=== PATIENT | female | born 1995 | race Caucasian/White ===

== ENCOUNTER 2017-03-08 22:25 | Emergency (ER) | payer OTHER ==
[~2017-03-08] VITALS: Ht 165.1 cm; Wt 79.5 kg
[~2017-03-08 22:25] MED LIST: BIRTH CONTROL PO; FLOVENT 110MCG7.9 GM IH; LORTAB 5/500 501 TAB PO; ZITHROMAX Z PA250 MG PO
[2017-03-08 22:29] VITALS: BP 113/68; PULSE 85; TEMP 97.9
== END 2017-03-08 23:26 | disposition left against medical advice (07) ==
LOC: COL.ER 22:25
DX: J18.9 Pneumonia, unspecified organism (principal)

== ENCOUNTER 2017-03-30 03:33 | Emergency (ER) | payer OTHER ==
[~2017-03-30] VITALS: Ht 165.1 cm; Wt 77.3 kg
[2017-03-30 03:37] VITALS: TEMP 98.2
[2017-03-30] MEDS ORDERED: DOXYCYCLINE 10100 MG PO (06:29)
[2017-03-30] MEDS ORDERED: PREDNISONE20 MG PO (06:29)
[2017-03-30 06:41] VITALS: BP 122/73; PULSE 98
== END 2017-03-30 06:42 | disposition home or self-care (01) ==
LOC: COL.ER 03:33
DX: J45.901 Unspecified asthma with (acute) exacerbation (principal); J20.9 Acute bronchitis, unspecified; F17.210 Nicotine dependence, cigarettes, uncomplicated; Z32.02 Encounter for pregnancy test, result negative
CPT/HCPCS: J7512

== ENCOUNTER 2018-07-12 22:29 | Emergency (ER) | payer OTHER ==
[~2018-07-12] VITALS: Ht 162.6 cm; Wt 68.2 kg
[~2018-07-12 22:29] MED LIST changes: +DOXYCYCLINE 10100 MG PO; +PREDNISONE20 MG PO
[2018-07-12 22:35] VITALS: BP 122/69; TEMP 97.4
[2018-07-13 00:14] VITALS: PULSE 60
== END 2018-07-13 00:14 | disposition home or self-care (01) ==
LOC: COL.ER 22:29
DX: T22.112A Burn of first degree of left forearm, initial encounter (principal); Z23 Encounter for immunization; X10.2XXA Contact with fats and cooking oils, initial encounter; Y92.59 Other trade areas as the place of occurrence of the external cause

== ENCOUNTER 2020-03-25 22:30 | Emergency (ER) | payer SELFPAY ==
[~2020-03-25] VITALS: Ht 162.6 cm; Wt 61.4 kg
[2020-03-25 22:36] VITALS: BP 107/63; PULSE 92; TEMP 98
[2020-03-25 23:29] LABS: COLLECTION METHOD CLEAN CATCH
[2020-03-25 23:36] LABS: MUCOUS Present /lpf; PH 5 (5-8); URINE APPEARANCE Hazy; URINE BACTERIA None Seen /hpf; URINE BILIRUBIN Negative (NEGATIVE); URINE BLOOD Negative (NEGATIVE); URINE COLOR Yellow; URINE GLUCOSE Negative (NEGATIVE); URINE KETONE Negative (NEGATIVE); URINE LEUKOCYTE ESTERASE Negative (NEGATIVE); URINE NITRATE Negative (NEGATIVE); URINE PROTEIN(semi-quant) Negative (NEGATIVE); URINE RBC 0-2 /hpf; URINE UROBILINOGEN Negative (NEGATIVE)
== END 2020-03-26 00:17 | disposition home or self-care (01) ==
LOC: COL.ER 22:30
PROVIDERS: Emergency Medicine
DX: R10.2 Pelvic and perineal pain (principal); F17.210 Nicotine dependence, cigarettes, uncomplicated; Z79.52 Long term (current) use of systemic steroids

== ENCOUNTER 2020-09-23 22:48 | Emergency (ER) | payer OTHER ==
[~2020-09-23] VITALS: Ht 162.6 cm; Wt 59.1 kg
[~2020-09-23 22:48] MED LIST changes: +CLEOCIN HCL300 MG PO; +MAGIC MOUTH PO
[2020-09-23 22:52] VITALS: TEMP 98.1
[2020-09-24 00:40] VITALS: BP 120/80; PULSE 80
== END 2020-09-24 00:50 | disposition home or self-care (01) ==
LOC: COL.ER 22:48
DX: M79.641 Pain in right hand (principal); M79.644 Pain in right finger(s); M79.89 Other specified soft tissue disorders; W22.8XXA Striking against or struck by other objects, initial encounter; Y92.810 Car as the place of occurrence of the external cause
CPT/HCPCS: J1885

== ENCOUNTER 2020-09-28 13:13 | Emergency (ER) | payer OTHER ==
[~2020-09-28] VITALS: Ht 162.6 cm; Wt 61.4 kg
[2020-09-28 13:36] VITALS: TEMP 99.3
[2020-09-28 14:26] LABS: STREP SCREEN NEGATIVE
[2020-09-28] MEDS ORDERED: FLOVENT 110MCG7.9 GM IH (15:07)
[2020-09-28] MEDS ORDERED: AMOXICILLIN 8751 TAB PO (15:07)
[2020-09-28 15:11] VITALS: BP 109/83; PULSE 90
== END 2020-09-28 15:21 | disposition home or self-care (01) ==
LOC: COL.ER 13:13
PROVIDERS: Nurse Practitioner Primary Care
DX: J01.90 Acute sinusitis, unspecified (principal); J45.909 Unspecified asthma, uncomplicated; F17.210 Nicotine dependence, cigarettes, uncomplicated; Z20.822 Contact with and (suspected) exposure to COVID-19

== ENCOUNTER 2021-01-25 15:13 | Emergency (ER) | payer SELFPAY ==
[~2021-01-25] VITALS: Ht 162.6 cm; Wt 59.1 kg
[~2021-01-25 15:13] MED LIST changes: +AMOXICILLIN 8751 TAB PO
[2021-01-25 16:00] VITALS: TEMP 98.4
[2021-01-25 17:52] VITALS: BP 108/61; PULSE 72
== END 2021-01-25 17:53 | disposition home or self-care (01) ==
LOC: COL.ER 15:13
DX: R52 Pain, unspecified (principal); Z20.822 Contact with and (suspected) exposure to COVID-19

== ENCOUNTER 2021-03-12 14:33 | Emergency (ER) | payer SELFPAY ==
[~2021-03-12] VITALS: Ht 162.6 cm; Wt 62.7 kg
[2021-03-12 14:45] VITALS: BP 100/67; TEMP 98.1
[2021-03-12 15:53] VITALS: PULSE 79
== END 2021-03-12 15:53 | disposition home or self-care (01) ==
LOC: COL.ER 14:33
DX: S93.402A Sprain of unspecified ligament of left ankle, initial encounter (principal); J45.909 Unspecified asthma, uncomplicated; F17.210 Nicotine dependence, cigarettes, uncomplicated; Z79.51 Long term (current) use of inhaled steroids; W10.8XXA Fall (on) (from) other stairs and steps, initial encounter

== ENCOUNTER 2021-05-11 16:07 | Emergency (ER) | payer SELFPAY ==
[~2021-05-11] VITALS: Ht 162.6 cm; Wt 61.4 kg
[2021-05-11 16:55] VITALS: TEMP 98.1
[2021-05-11 17:47] LABS: COLLECTION METHOD CLEAN CATCH
[2021-05-11 17:52] LABS: PH 7 (5-8); URINE APPEARANCE Clear (CLEAR/HAZY); URINE BACTERIA None Seen /hpf (NONE SEEN); URINE BILIRUBIN Negative (NEGATIVE); URINE BLOOD Negative (NEGATIVE); URINE COLOR Yellow (YELLOW); URINE GLUCOSE Negative (NEGATIVE); URINE KETONE Negative (NEGATIVE); URINE LEUKOCYTE ESTERASE Negative (NEGATIVE); URINE NITRATE Negative (NEGATIVE); URINE PROTEIN(semi-quant) Negative (NEGATIVE); URINE RBC 0-2 /hpf (0-2); URINE UROBILINOGEN Negative (NEGATIVE)
[2021-05-11 19:05] LABS: BASO % 0.3 % (0.0-2.0); EOS # 0.3 K/mm3 (0.0-0.7); EOS % 3.6 % (0.0-4.0); GRAN # 6.4 K/mm3 (1.4-6.5); GRAN % 67.5 % (42.2-75.2); HEMATOCRIT 42.8 % (37.0-47.0); HEMOGLOBIN 14.7 g/dl (12.5-16.0); LYMPH # 2.2 K/mm3 (1.2-3.4); LYMPH % 22.7 % (20.0-51.0); MEAN CELL VOLUME 89 fl (80.0-100.0); MEAN CORPUSCULAR HEMOGLOBIN 31 pg (27-31); MEAN CORPUSCULAR HGB CONC 34 g/dl (33.0-37.0); MEAN PLATELET VOLUME 10.8 fl (7.4-10.4); MONO # 0.6 K/mm3 (0.1-0.6); MONO % 5.8 % (1.7-9.3); PLATELET COUNT 211 K/mm3 (130-400); REDCELL DISTRIBUTION WIDTH-CV 11.8 % (11.5-14.5)
[2021-05-11 19:22] LABS: ALBUMIN 3.9 gm/dL (3.5-5.0); BILIRUBIN,TOTAL 0.6 mg/dL (0.2-1.2); CALCIUM 8.6 mg/dL (8.4-10.2); CREATININE, serum 0.86 mg/dL (0.57-1.11); POTASSIUM 3.7 mmol/L (3.5-4.5); TOTAL PROTEIN 6.3 gm/dL (6.2-8.1)
[2021-05-11 19:55] VITALS: BP 131/61; PULSE 80
== END 2021-05-11 20:00 | disposition home or self-care (01) ==
LOC: COL.ER 16:07
PROVIDERS: Family Medicine; Physician Assistant
DX: R10.12 Left upper quadrant pain (principal); Z87.19 Personal history of other diseases of the digestive system; Z32.02 Encounter for pregnancy test, result negative
CPT/HCPCS: J1885

== ENCOUNTER 2021-07-04 13:18 | Emergency (ER) | payer SELFPAY ==
[~2021-07-04] VITALS: Ht 162.6 cm; Wt 59.1 kg
[2021-07-04 13:42] VITALS: TEMP 97.4
[2021-07-04 14:03] LABS: COLLECTION METHOD CLEAN CATCH
[2021-07-04 14:21] LABS: BASO % 0.3 % (0.0-2.0); EOS # 0.2 K/mm3 (0.0-0.7); EOS % 1.9 % (0.0-4.0); GRAN # 5.4 K/mm3 (1.4-6.5); GRAN % 67.7 % (42.2-75.2); HEMATOCRIT 42.5 % (37.0-47.0); HEMOGLOBIN 14.5 g/dl (12.5-16.0); LYMPH # 1.8 K/mm3 (1.2-3.4); LYMPH % 23.1 % (20.0-51.0); MEAN CELL VOLUME 90 fl (80.0-100.0); MEAN CORPUSCULAR HEMOGLOBIN 31 pg (27-31); MEAN CORPUSCULAR HGB CONC 34 g/dl (33.0-37.0); MEAN PLATELET VOLUME 10.7 fl (7.4-10.4); MONO # 0.6 K/mm3 (0.1-0.6); MONO % 6.9 % (1.7-9.3); PLATELET COUNT 232 K/mm3 (130-400); RED BLOOD COUNT 4.74 M/mm3 (4.10-5.30); REDCELL DISTRIBUTION WIDTH-CV 11.9 % (11.5-14.5)
[2021-07-04 14:44] LABS: ALBUMIN 4.1 gm/dL (3.5-5.0); BILIRUBIN,TOTAL 0.6 mg/dL (0.2-1.2); C-REACTIVE PROTEIN 0.24 mg/dL (0.00-0.50); CALCIUM 8.9 mg/dL (8.4-10.2); CREATININE, serum 0.94 mg/dL (0.57-1.11); POTASSIUM 4.3 mmol/L (3.5-4.5); TOTAL PROTEIN 6.8 gm/dL (6.2-8.1)
[2021-07-04 15:03] LABS: MUCOUS Present (NOT PRESENT); PH 5 (5-8); URINE APPEARANCE Hazy (CLEAR/HAZY); URINE BACTERIA None Seen /hpf (NONE SEEN); URINE BILIRUBIN Negative (NEGATIVE); URINE BLOOD Negative (NEGATIVE); URINE COLOR Yellow (YELLOW); URINE GLUCOSE Negative (NEGATIVE); URINE KETONE Trace (NEGATIVE); URINE LEUKOCYTE ESTERASE Negative (NEGATIVE); URINE NITRATE Negative (NEGATIVE); URINE PROTEIN(semi-quant) Negative (NEGATIVE); URINE RBC 0-2 /hpf (0-2); URINE UROBILINOGEN Negative (NEGATIVE)
[2021-07-04] MEDS ORDERED: NORCO 325 MG-51 TAB PO (15:15)
[2021-07-04 15:18] VITALS: BP 102/62; PULSE 69
== END 2021-07-04 15:26 | disposition home or self-care (01) ==
LOC: COL.ER 13:18
PROVIDERS: Physician Assistant
DX: R10.30 Lower abdominal pain, unspecified (principal); Z32.02 Encounter for pregnancy test, result negative
CPT/HCPCS: J1885; J7030

== ENCOUNTER → 2021-07-19 | Outpatient (CLI) | payer OTHER ==
[~2021-07-19] MED LIST changes: +NORCO 325 MG-51 TAB PO
== END ==
LOC: MC.RAD 13:41
DX: N63.20 Unspecified lump in the left breast, unspecified quadrant (principal)

== ENCOUNTER → 2021-08-07 | Outpatient (CLI) | payer SELFPAY | LOC: COL.RAD 13:25 | DX: N94.10 Unspecified dyspareunia (principal) ==

== ENCOUNTER 2021-12-06 14:38 | Emergency (ER) | payer SELFPAY ==
[~2021-12-06] VITALS: Ht 165.1 cm; Wt 59.1 kg
[2021-12-06 14:57] VITALS: TEMP 98.8
[2021-12-06 16:06] LABS: COLLECTION METHOD CLEAN CATCH
[2021-12-06 16:13] LABS: BASO % 0.5 % (0.0-2.0); EOS # 0.2 K/mm3 (0.0-0.7); EOS % 2.1 % (0.0-4.0); GRAN % 68.8 % (42.2-75.2); HEMATOCRIT 41.4 % (37.0-47.0); HEMOGLOBIN 14.8 g/dl (12.5-16.0); LYMPH % 23.3 % (20.0-51.0); MEAN CELL VOLUME 86 fl (80.0-100.0); MEAN CORPUSCULAR HEMOGLOBIN 31 pg (27-31); MEAN CORPUSCULAR HGB CONC 36 g/dl (33.0-37.0); MEAN PLATELET VOLUME 10.6 fl (7.4-10.4); MONO # 0.5 K/mm3 (0.1-0.6); MONO % 5.1 % (1.7-9.3); PLATELET COUNT 225 K/mm3 (130-400); RED BLOOD COUNT 4.83 M/mm3 (4.10-5.30); REDCELL DISTRIBUTION WIDTH-CV 11.6 % (11.5-14.5)
[2021-12-06 16:21] LABS: PH 6 (5-8); SQUAMOUS EPITHELIAL None Seen /hpf (0-10); URINE APPEARANCE Clear (CLEAR/HAZY); URINE BACTERIA None Seen /hpf (NONE SEEN); URINE BLOOD 1+ (NEGATIVE); URINE COLOR Colorless (YELLOW); URINE GLUCOSE Negative (NEGATIVE); URINE KETONE Negative (NEGATIVE); URINE NITRATE Negative (NEGATIVE); URINE PROTEIN(semi-quant) Negative (NEGATIVE); URINE RBC None Seen /hpf (0-2); URINE UROBILINOGEN Negative (NEGATIVE)
[2021-12-06 16:31] LABS: ALBUMIN 4.4 gm/dL (3.5-5.0); BILIRUBIN,TOTAL 0.9 mg/dL (0.2-1.2); CALCIUM 9.2 mg/dL (8.4-10.2); CREATININE, serum 1.03 mg/dL (0.57-1.11); POTASSIUM 3.4 mmol/L (3.5-4.5); TOTAL PROTEIN 6.9 gm/dL (6.2-8.1)
[2021-12-06] MEDS ORDERED: BENTYL 20MG20 MG/TAB PO (16:36)
[2021-12-06 16:47] VITALS: BP 138/87; PULSE 82
== END 2021-12-06 16:47 | disposition home or self-care (01) ==
LOC: COL.ER 14:38
PROVIDERS: Physician Assistant
DX: R10.84 Generalized abdominal pain (principal); R14.0 Abdominal distension (gaseous); Z86.19 Personal history of other infectious and parasitic diseases; Z98.890 Other specified postprocedural states; Z32.02 Encounter for pregnancy test, result negative; Z28.310 Unvaccinated for COVID-19
CPT/HCPCS: J0500

== ENCOUNTER 2023-08-01 11:18 | Emergency (ER) | payer SELFPAY ==
[~2023-08-01] VITALS: Ht 165.1 cm; Wt 77.3 kg
[~2023-08-01 11:18] MED LIST changes: +AMOXICILLIN 50500 MG PO; +BENTYL 20MG20 MG/TAB PO; +FLEXERIL 1010 MG/TAB PO; +NAPROSYN500 MG PO; +ZOFRAN ODT4 MG PO
[2023-08-01 11:20] VITALS: TEMP 98.5
[2023-08-01] MEDS ORDERED: Ketorolac 15 MG/ML VIAL IM ONE (11:45)
[2023-08-01 12:50] VITALS: BP 116/76; PULSE 72
== END 2023-08-01 12:50 | disposition home or self-care (01) ==
LOC: COL.ER 11:18
DX: S93.402A Sprain of unspecified ligament of left ankle, initial encounter (principal); V89.2XXA Person injured in unspecified motor-vehicle accident, traffic, initial encounter; Y92.410 Unspecified street and highway as the place of occurrence of the external cause
CPT/HCPCS: J1885; J2360